=== PATIENT | female | born 1935 | race Caucasian/White ===

== ENCOUNTER 2018-07-13 11:46 | Emergency (ER) | payer MEDICARE, BC ==
[~2018-07-13] VITALS: Ht 167.6 cm; Wt 93.0 kg
[~2018-07-13 11:46] MED LIST: ACET325T9 PO; ASPI-630 PO; ATOR10TA60 PO; BENZ-8 PO; CALC-30 PO; CYAN10005 PO; DOCU-109 PO; FERR325T14 PO; FISH12002 PO; FURO-68 PO; GUAI5SYR PO; GUAI600T47 PO; HYDR-3165 PO; HYDR12.58 PO; LISI-338 PO; LISI10TA2 PO; LORA-254 PO; MUPI22OI TP; ONDA4TAB12 PO; PANT40TA5 PO; UBID100C40 PO; VITA1CAP PO
[2018-07-13 12:04] LABS: BASO # 0.1 x10^3/uL (0.0-0.2); BASO % 1 % (0-3); EOS # 0.1 x10^3/uL (0.0-0.7); EOS % 2 % (0-3); HEMOGLOBIN 7.6 g/dL (12.0-15.5); LYMPH # 1.8 x10^3/uL (1.0-4.8); LYMPH % 22 % (24-48); MEAN CORPUSCULAR HEMOGLOBIN 22 pg (25-35); MEAN CORPUSCULAR HGB CONC 30 g/dL (31-37); MEAN CORPUSCULAR VOLUME 73 fL (79-100); MONO # 1.2 x10^3/uL (0.0-1.1); MONO % 15 % (0-9); NEUT # 4.9 x10^3uL (1.8-7.7); NEUT % 61 % (31-73); PLATELET COUNT 360 x10^3/uL (140-400); RED BLOOD COUNT 3.44 x10^6/uL (3.50-5.40); RED CELL DISTRIBUTION WIDTH 19.5 % (11.5-14.5); WHITE BLOOD COUNT 8.1 x10^3/uL (4.0-11.0)
[2018-07-13 12:14] LABS: ALBUMIN 3.1 g/dL (3.4-5.0); ALBUMIN/GLOBULIN RATIO 0.6 (1.0-1.7); CALCIUM 9.1 mg/dL (8.5-10.1); CREATININE 1.2 mg/dL (0.6-1.0); GFR 42.9; POTASSIUM 4.1 mmol/L (3.5-5.1); TOTAL BILIRUBIN 0.9 mg/dL (0.2-1.0)
--- NOTE | 2018-07-13 12:14 | PHYS DOC ---
Past History Past Medical History: A-Fib, High Cholesterol, Hypertension Past Surgical History: Appendectomy Alcohol Use: None Drug Use: None Adult General Chief Complaint Chief Complaint: SHORTNESS OF BREATH HPI HPI 83-year-old female presents because she was directed by her PCP due to abnormal hemoglobin. She was told was low, but was not told a number. The patient has been having shortness of breath with exertion for a couple of weeks. It is gone at a point where even walking across the room makes her short of breath. She denies dizziness. She has no lung history. She was never a smoker. She never lived with a smoker. Patient has atrial fibrillation with controlled rate. She is on Eloquis daily. Patient denies blood in her urine or stool. She denies dark stools. She is scheduled for an EGD and colonoscopy in 2 days. She denies fever or chills. Review of Systems Review of Systems Constitutional: Denies fever or chills [] Eyes: Denies change in visual acuity, redness, or eye pain [] HENT: Denies nasal congestion or sore throat [] Respiratory: shortness of breath [] Cardiovascular: No additional information not addressed in HPI [] GI: Denies abdominal pain, nausea, vomiting, bloody stools or diarrhea [] : Denies dysuria or hematuria [] Musculoskeletal: Denies back pain or joint pain [] Integument: Denies rash or skin lesions [] Neurologic: Denies headache, focal weakness or sensory changes [] Endocrine: Denies polyuria or polydipsia [] All other systems were reviewed and found to be within normal limits, except as documented in this note. Allergies Allergies Allergies Coded Allergies Type Severity Reaction Last Updated Verified Iodinated Contrast Media - IV Dye Allergy Intermediate Unknown 06/02/15 Yes I S O L A T I O N *CONTACT* Allergy Unknown 06/04/15 Yes Physical Exam Physical Exam Constitutional: Well developed, well nourished, no acute distress, non-toxic appearance. [] HENT: Normocephalic, atraumatic, bilateral external ears normal, oropharynx moist, no oral exudates, nose normal. [] Eyes: PERRLA, EOMI, conjunctiva normal, no discharge. [] Neck: Normal range of motion, no tenderness, supple, no stridor. [] Cardiovascular: Heart rate 107, irregular rhythm, no murmur [] Lungs & Thorax: Bilateral breath sounds clear to auscultation [] Abdomen: Bowel sounds normal, soft, no tenderness, no masses, no pulsatile masses. [] Skin: Warm, dry, no erythema, no rash. [] Back: No tenderness, no CVA tenderness. [] Extremities: No tenderness, no cyanosis, no clubbing, ROM intact, no edema. [] Neurologic: Alert and oriented X 3, normal motor function, normal sensory function, no focal deficits noted. [] Psychologic: Affect normal, judgement normal, mood normal. [] Current Patient Data Vital Signs Vital Signs Date Time Temp Pulse Resp B/P (MAP) Pulse Ox O2 Delivery O2 Flow Rate FiO2 07/13/18 11:50 98.0 109 18 96 Room Air EKG EKG [] Radiology/Procedures Radiology/Procedures [] Impressions: CHEST PA LATERAL History: shortness of breath Comparison: 06/06/2015 Findings: 2 views of the chest are submitted. There is again suspected emphysema. There is increased interstitial and reticular opacity of the mid to inferior hemithoraces bilaterally. There is hiatal hernia. Heart size is stable, within normal limits. There is atherosclerotic calcification aortic arch. No pneumothorax is identified. There is some opacity posteriorly on the lateral view, uncertain if small pleural effusion although difficult to localize on the PA view and may be sales representative printing paper of more localized infiltrate such as left lower lobe. Impression: 1. There is increased interstitial reticular opacity of the mid to inferior hemithoraces bilaterally likely due to interstitial infiltrate or edema. There is emphysema. There may be small pleural effusion as suggested on the lateral view posteriorly although difficult to otherwise difficult to localize, apparently could be left lower lobe infiltrate. 2. There is hiatal hernia. Electronically signed by: Alirio Valdivia MD (07/13/2018 12:43 PM) [facility] DICTATED AND SIGNED BY: ALIRIO VALDIVIA MD DATE: 07/13/18 1243 CC: SIDNEY OLIVA DO; AGAPITO FUENTES MD CT CHEST WO CONTRAST Indication: short of air, abnormal chest xray Technique: Noncontrast CT imaging was performed of the chest, multiplanar reconstruction images submitted. One or more of the following individualized dose reduction techniques were utilized for this examination: 1. Automated exposure control 2. Adjustment of the mA and/or kV according to patient size 3. Use of iterative reconstruction technique. Comparison: No previous chest CT available, correlation made with chest radiograph the same day Findings: There are small dependent pleural effusions bilaterally. There is emphysema including centrilobular and paraseptal emphysema, upper zone predominance. There is no pneumothorax. There is large focus of more confluent density of the left lower lobe about 5.9 cm transverse by 3.6 m AP by 4.5 cm CC. There are no internal bronchograms. There is some coronary calcification. Thoracic aortic caliber is within normal limits. There is enlarged subcarinal node estimated about 1.7 cm short axis dimension. There is nodule along the left major fissure of the left lower lobe about 0.9 cm axial image 42. There is multilevel thoracic spondylosis. There is some septal thickening bilaterally, some mild honeycombing also present. There is fullness of the left adrenal gland with 1.2 cm nodule although density measurements more suggestive of adenoma. There is also mild fullness of the right adrenal gland. There is [id number] size hiatal hernia. IMPRESSION: 1. There is abnormal masslike density of the left lower lobe concerning for neoplasm until proven otherwise, no internal air bronchograms to confidently suggest infiltrate. There is somewhat enlarged subcarinal node. 2. There is emphysema, also septal thickening likely interstitial lung disease. There are small dependent pleural effusions bilaterally. 3. There is some coronary calcification. 4. There is hiatal hernia. Electronically signed by: Alirio Valdivia MD (07/13/2018 2:14 PM) [facility] DICTATED AND SIGNED BY: ALIRIO VALDIVIA MD DATE: 07/13/18 1418 CC: SIDNEY OLIVA DO; AGAPITO FUENTES MD ~ Course & Med Decision Making Course & Med Decision Making Pertinent Labs and Imaging studies reviewed. (See chart for details) Patient's labs are remarkable for hemoglobin of 7.6. This is the same as it was 5 days ago. Her hematocrit is 25 down from 27 5 days ago. The patient's hemoglobin is quite low, but appears to be stable. Her urinalysis shows leukocyte esterase, the patient is not having any symptoms. I will not treat her for UTI. The patient's chest x-ray shows reticular opacity bilaterally which could be edema or infiltrate. The patient is mildly tachycardic. She does not have a fever. She does not have a cough. I will perform a CT without contrast of the chest to further clarify this. The patient cannot have contrast because she is allergic and she has a decreased GFR. The patient's chest x-ray was significant for a left lower lobe mass. This is assumed to be cancer until proven otherwise. I did inform the patient of this finding. She was not aware of this previously. I have recommended that she talk to her primary physician and get a referral for a specialist. She states verbal understanding. The patient's hemoglobin appears to be stable and she is feeling okay so I believe that she can go home. If her condition worsens in any way she will return to the emergency room. [] Dragon Disclaimer Dragon Disclaimer This electronic medical record was generated, in whole or in part, using a voice recognition dictation system. Departure Departure: Impression: Primary Impression: Lung cancer Additional Impressions: Anemia Shortness of breath Disposition: 01 HOME, SELF-CARE Condition: STABLE Referrals: AGAPITO FUENTES MD (PCP) Patient Instructions: Lung Cancer Problem Qualifiers Primary Impression: Lung cancer Laterality: left Lung location: lower lobe of lung Qualified Codes: C34.32 - Malignant neoplasm of lower lobe, left bronchus or lung Additional Impressions: Anemia Anemia type: other cause Other causes of anemia: chronic disease, neoplastic Qualified Codes: D63.0 - Anemia in neoplastic disease SIDNEY OLIVA DO Jul 13, 2018 12:14
--- NOTE | 2018-07-13 12:45 | RAD ---
CHEST PA LATERAL History: shortness of breath Comparison: 06/06/2015 Findings: 2 views of the chest are submitted. There is again suspected emphysema. There is increased interstitial and reticular opacity of the mid to inferior hemithoraces bilaterally. There is hiatal hernia. Heart size is stable, within normal limits. There is atherosclerotic calcification aortic arch. No pneumothorax is identified. There is some opacity posteriorly on the lateral view, uncertain if small pleural effusion although difficult to localize on the PA view and may be sales representative publications of more localized infiltrate such as left lower lobe. Impression: 1. There is increased interstitial reticular opacity of the mid to inferior hemithoraces bilaterally likely due to interstitial infiltrate or edema. There is emphysema. There may be small pleural effusion as suggested on the lateral view posteriorly although difficult to otherwise difficult to localize, apparently could be left lower lobe infiltrate. 2. There is hiatal hernia. Electronically signed by: Kodak Solitario MD (07/13/2018 12:43 PM) [facility]
[2018-07-13 12:47] LABS: ANISOCYTOSIS PRESENT; HYPOCHROMIA MOD; MICROCYTOSIS MOD; PLATELET CLUMP PRESENT; PLT ESTIMATE ADEQUATE (ADEQUATE); STOMATOCYTES FEW
[2018-07-13 13:00] LABS: BACTERIA,URINE MOD /HPF (0-FEW); BILIRUBIN,URINE NEG (NEG); CLARITY,URINE HAZY; COLOR,URINE YELLOW; GLUCOSE,URINE NEG (NEG); NITRITE,URINE NEG (NEG); RBC,URINE 0 /HPF (0-2); SQUAMOUS EPITHELIAL CELL,UR MANY /LPF; UROBILINOGEN,URINE 1 mg/dL (0.2 mg/dL)
--- NOTE | 2018-07-13 14:05 | EKG ---
[address] [address] Test Date: 2018-07-13 Test Time: 12:04:58 Pat Name: VELASQUEZ DALTON Department: Room: Gender: F Optometrist: HAVEN : [id number] Requested By: SIDNEY OLIVA Order Number: [id number] Reading MD: Eduin Larsen MD Measurements Intervals [place] Rate: 107 P: NV: QRS: 26 QRSD: 74 T: 4 QT: 350 QTc: 473 Interpretive Statements ATRIAL FIBRILLATION WITH RVR NON-SPECIFIC ST/T CHANGES Electronically Signed On 07-15-2018 14:30:50 CDT by Eduin Larsen MD
[2018-07-13 14:13] VITALS: BP 117/67
--- NOTE | 2018-07-13 14:17 | RAD ---
CT CHEST WO CONTRAST Indication: short of air, abnormal chest xray Technique: Noncontrast CT imaging was performed of the chest, multiplanar reconstruction images submitted. One or more of the following individualized dose reduction techniques were utilized for this examination: 1. Automated exposure control 2. Adjustment of the mA and/or kV according to patient size 3. Use of iterative reconstruction technique. Comparison: No previous chest CT available, correlation made with chest radiograph the same day Findings: There are small dependent pleural effusions bilaterally. There is emphysema including centrilobular and paraseptal emphysema, upper zone predominance. There is no pneumothorax. There is large focus of more confluent density of the left lower lobe about 5.9 cm transverse by 3.6 m AP by 4.5 cm CC. There are no internal bronchograms. There is some coronary calcification. Thoracic aortic caliber is within normal limits. There is enlarged subcarinal node estimated about 1.7 cm short axis dimension. There is nodule along the left major fissure of the left lower lobe about 0.9 cm axial image 42. There is multilevel thoracic spondylosis. There is some septal thickening bilaterally, some mild honeycombing also present. There is fullness of the left adrenal gland with 1.2 cm nodule although density measurements more suggestive of adenoma. There is also mild fullness of the right adrenal gland. There is [id number] size hiatal hernia. IMPRESSION: 1. There is abnormal masslike density of the left lower lobe concerning for neoplasm until proven otherwise, no internal air bronchograms to confidently suggest infiltrate. There is somewhat enlarged subcarinal node. 2. There is emphysema, also septal thickening likely interstitial lung disease. There are small dependent pleural effusions bilaterally. 3. There is some coronary calcification. 4. There is hiatal hernia. Electronically signed by: Kodak Solitario MD (07/13/2018 2:14 PM) [facility]
== END 2018-07-13 14:59 | disposition home or self-care (01) ==
LOC: ER 11:46
DX: C34.32 Malignant neoplasm of lower lobe, left bronchus or lung (principal); D63.0 Anemia in neoplastic disease; R00.0 Tachycardia, unspecified; R06.02 Shortness of breath; K44.9 Diaphragmatic hernia without obstruction or gangrene; J90 Pleural effusion, not elsewhere classified; J43.9 Emphysema, unspecified; M47.894 Other spondylosis, thoracic region; I48.91 Unspecified atrial fibrillation; E78.00 Pure hypercholesterolemia, unspecified; I10 Essential (primary) hypertension; Z91.041 Radiographic dye allergy status
CPT/HCPCS: 36415; 71046; 71250; 80053; 81001; 84484; 85025; 87086; 93005; 99284-25